=== PATIENT | male | born 1940 | race Caucasian/White ===

== ENCOUNTER 2017-04-09 09:07 | Inpatient (IN) | payer MEDICARE, OTHER ==
[2017-04-09] VITALS (12 sets, daily range): BP systolic 127–179; BP diastolic 51–78; Ht 175.3 cm; Wt 85.0 kg
[~2017-04-09] VITALS: Ht 175.3 cm; Wt 85.0 kg
--- NOTE | ~2017-04-09 | OP ---
PATIENT NAME: JACKIE BYRD JR MEDICAL RECORD: [id number] :38 [facility]ATION[id number] ADMISSION DATE:04/09/17 SURGEON: DON GARCIA MD DATE OF OPERATION: 04/09/2017 PREOPERATIVE DIAGNOSIS: High-grade right carotid artery stenosis. POSTOPERATIVE DIAGNOSIS: High-grade right carotid artery stenosis. PROCEDURE: Right carotid artery endarterectomy with a bovine patch angioplasty with neuromonitoring. SURGEON: Don Garcia MD. COMMUNICATION INSTRUCTOR: Seng Rapp MD. FLUIDS: Per anesthesia record. ANESTHESIA: General. ESTIMATED BLOOD LOSS: 100. SPECIMENS: Right carotid artery plaque. DISPOSITION: Awake to the ICU. Neurologically fully intact, verbalizing and moving all extremities without limitations. INDICATION FOR PROCEDURE: Mr. Byrd is a 77-year-old gentleman under the care of Dr. Garcia, who was found to have elevated velocities on an ultrasound of his carotids. Follow up CT scan showed a high-grade focal narrowing approximately 90% of the proximal ICA. We discussed the risks, alternatives and benefits of surgery. I discussed with Mr. Byrd the medical management versus surgical management. Given the high-grade focal abnormality in his health, we discussed the risks, alternatives and benefits of right carotid artery endarterectomy with bovine patch angioplasty and informed consent was obtained and placed in the chart. PROCEDURE IN DETAIL: After positive identification, informed consent was obtained, the patient was taken to the operating room, laid supine on the operating table. Monitoring lines including EKG pads and a blood pressure cuff. A-line was placed by anesthesia in the preoperative holding area. General anesthesia was induced via endotracheal tube intubation. Neuromonitoring was present during the entire case. The patient was placed in the reverse Trendelenburg position with the neck outstretched. The neck was prepped and draped in standard fashion. A surgical timeout was performed and all members agreed to proceed. We began the procedure by delineating the mastoid process, the clavicular sternal head of the sternocleidomastoid. A 6-cm incision was made along the anterior border of the sternocleidomastoid. Dissection was afforded down through the soft tissues. The platysma was split. [place] was used for retraction. We carefully dissected down on the anterior portion of the sternocleidomastoid and we encountered the internal jugular vein. His anatomy was excellent. It was noted that he did have quite a boggy and swollen parotid OPERATIVE REPORT [id number] JACKIE BYRD JR gland, which was deflected out with retraction. The external jugular vein was taken for exposure. The facial vein was transected for exposure. This made our way down to the carotid artery. A 5000 units of heparin was given prior to manipulating the artery. Neuromonitoring was continued. As we continued to dissect out the carotid artery, it became readily apparent and his bifurcation was quite low and this was advantageous to us. We noted that there was a focal approximately 1 cm plaque distal to the bifurcation correlating with the CT scan. We then carefully encircled and dissected out and skeletonized the carotid artery proximally along the ECA, ICA, and the thyroid branch. These were all controlled with tapes. A 5000 additional units of heparin was given and then when he was fully heparinized, we then clamped the internal carotid artery, the common carotid artery and tapes were used to control the external. Next, utilizing the 11 blade, we carefully opened up the bifurcation on the internal carotid side. Then, using the [place], we carefully extended this over the plaque. It became immediately evident that the plaque was quite severe nearly occluding the carotid and was approximately 1 cm to 2 cm in length. This extended well into the external carotid artery. Then, using the [place] elevator, we carefully and circumferentially dissected out this plaque and we were able to jerry it out of the external carotid and this was then delivered to pathology. The plaque was a little bit mixed and had some soft components and hard components. I was very happy that we were able to deliver the plaque in this completeness to pathology. We then carefully examined our posterior wall. There were some small tears within the media and the intima, which were peeled away back to good vessel wall. These vessel wall layers were then tacked utilizing three 7-0 Prolenes on the proximal ICA and then also on the proximal ECA. This was to ensure that there would be no dissection flap or a nidus for thrombus. After this was done, we thoroughly irrigated the carotid. A shunt was then placed. The 3.5 mm x 30 cm shunt was then placed. No changes in neuromonitoring were noticed. Shunt was confirmed to be in good place with Doppler signals. These were present. We then performed a bovine patch angioplasty utilizing standard bovine pericardial patch in its proper orientation with a 6-0 running suture in standard fashion. Prior to closing the bovine patch angioplasty, we then carefully reclamped the internal and common carotid artery, took the shunt out and then finished up the patch angioplasty. Again, neuromonitoring did not change during this event. We thoroughly flushed out the patch and then the common carotid artery and internal carotid artery was opened after thoroughly deairing and flushing out the graft through the external. During the entire procedure, after heparin was given, there were no changes within neuromonitoring. The repair was then evaluated and there was 1 small bleeder on the medial side near the external, which was controlled with a [id number] of 7-0 suture. After this was done, we then gave 75 units of heparin to counteract a total of 10,000 units of heparin given during the case. We waited for about 20 minutes and once hemostasis was assured, we thoroughly irrigated out the neck and we began to close. Once hemostasis was assured, we then closed the neck in 2 layers, first with layer of deep dermals for the platysmus and then a running Monocryl for the skin. Skin glue was then applied and dressing. Mr. Byrd was then awakened from deep anesthesia to prevent coughing and to allow him to sit up and to prevent venous hypertension. After waking up, he was able to verbalize and he was able to move all 4 extremities without limitations showing an intact neuro exam. OPERATIVE REPORT [id number] JACKIE BYRD TRANSINT:[id number] Voice Confirmation ID: [id number] DOCUMENT ID: [id number] DON GARCIA MD CC: [id number] DICTATION DATE: 04/09/171937 DRIVER/REFUSE COLLECTOR: 04/10/17 0240 ADM IN [facility] [address] [place] [address]
[~2017-04-09 09:07] MED LIST: ASPIRIN EC81 M1 PO; CENTRUM SILVER1 TA1 PO; FISH OIL 1,2001 CAP PO; LIPITOR40 MG PO; TRICOR145 MG PO; ZESTRIL40 MG PO
[2017-04-09 10:28] LABS: BASOPHILS 0.4 % (0-2); EOSINOPHILS 1.4 % (0-7); HEMATOCRIT 42.6 % (42.0-54.0); HEMOGLOBIN 14.8 g/dL (13.5-17.5); IMMATURE GRANULOCYTES 0.2 % (0-5); LYMPHOCYTES 15.7 % (15-50); MCH 32.2 pg (26.0-34.0); MCHC 34.7 g/dL (31.0-37.0); MCV 92.8 fL (80.0-100.0); MEAN PLATELET VOLUME 9.8 fL (7.4-10.4); MONOCYTES 11.3 % (2-11); PLATELET COUNT 163 10x3/uL (130-400); RBC 4.59 10x6/uL (4.20-6.10); RDW 12.8 % (11.5-14.5); WBC 5.2 10x3/uL (4.8-10.8)
[2017-04-09 10:36] LABS: ANION GAP 13.6 mmol/L (8-16); CALCIUM 9.5 mg/dL (8.5-10.1); CARBON DIOXIDE 25.5 mmol/L (21.0-32.0); CREATININE - SERUM 1.5 mg/dL (0.6-1.3); POTASSIUM - SERUM 4.1 mmol/L (3.5-5.1)
[2017-04-09 10:43] LABS: APTT 27.1 SECONDS (22.8-39.4); INR 1.02 (0.85-1.17); PROTIME 13.3 SECONDS (11.6-15.0)
--- NOTE | 2017-04-09 19:15 | NUR ---
PT ARRIVED VIA STRETCHER, PLACED ON MONITORS, DR. BRICENO AT BEDSIDE, NEW ORDERS RECIVED, PT ALERT AND ORIENETED, ON RA WITH 98% O2 SAT. S1S2, CM-NSR,
--- NOTE | 2017-04-09 19:16 | NUR ---
REC'D PT VIA BED, PT ACCOMPANIED BY HOSPITAL STAFF AND . LEFT RADIAL A-LINE. RIGHT NECK INCISIONAL DRESSING CDI. WILL CONTINUE TO MONITOR PT.
--- NOTE | 2017-04-09 21:00 | NUR ---
DAUGHTER AND SON IN LAW HERE TO VISIT. VSS. PT STATED PAIN AND NAUSEA "HAVE ABATED" PT VISITING FREELY. DRESSING TO RIGHT NECK CDI. ICE PACK TO DRESSING. A-LINE HAS BEEN LEVELED AND ZEROED BUT PT VERY MOBILE WITH EXTREMETIES MOVING THEM FREQUENTLY USING NIBP FOR CORRELATION AND MONITORING. TO START WITH ICE CHIPS SPARINGLY TOLERATED AND ADVANCE TO CL ORDERED.
--- NOTE | 2017-04-09 23:00 | NUR ---
SHIFT ASSESSMENT COMPLETED. SEE FLOWSHEET. IVF REMAIN UNCHANGED AND VSS. DRESSING TO RIGHT NECK REMAINS CDI. PT VOICES NO NEEDS. IS TOLERATING ICE CHIPS SPARINGLY BUT STATES IS NOT READY FOR FLUIDS. DENIES NAUSEA BUT KEEPS EMESIS BAG IN HAND FOR SECURITY. NEUROCHECKS REMAIN UNCHANGED AND STABLE
--- NOTE | 2017-04-09 23:45 | NUR ---
FAHAD JETT PLUNGER SHOVEL OPERATOR HERE TO SEE PT AND GET REPORT ON CONDITION. UPDATED.
[2017-04-10] VITALS (11 sets, daily range): BP systolic 125–162; BP diastolic 50–70
--- NOTE | 2017-04-10 01:00 | NUR ---
PT SLEEPING INTERMITTENTLY. DRESSING CDI WNL TO RIGHT NECK
--- NOTE | 2017-04-10 03:00 | NUR ---
SHIFT REASSESSMENT DONE MONITORING B[ CLOSELY. MEDS GIVEN PER MAR
--- NOTE | 2017-04-10 05:00 | NUR ---
PT UP TO CHAIR. TOLERATED WELL, GAIT STEADY. PILLOWS USED FOR SUPPORT AND TO ELEVATE EXTREMETIES. VSS. CALL LIGHT IN REACH
--- NOTE | 2017-04-10 07:04 | NUR ---
SPOKE WITH DR. GARCIA AND UPDATED HIM ON CONDITION OF PATIENTS. REVIEWED VS, PRN MEDS GIVEN THROUGHOUT THE SHIFT, AND HOME MEDS. NEW ORDERS RECEIVED AND REPEATED AND VERIFIED
--- NOTE | 2017-04-10 07:15 | NUR ---
REPORT RECIEVED FROM ORBITREAD OPERATOR NURSE. PT RESTING QUIETLY. NO S/SX OF ACUTE DISTRESS NOTED AT THIS TIME. ASSESMENT COMPELTE PER FLOWSHEET. CALL LIGHT IN REACH. BED IN LOW POSITION. WILL CONT TO ASSESS.
--- NOTE | 2017-04-10 08:00 | NUR ---
A-LINE REMOVED PER ORDERS. CATH INTACT. PRESSURE HELD FOR 3 MIN. NO ISSUES NOTED. OPSITE DRESSING PLACED OVER SITE.
--- NOTE | 2017-04-10 09:24 | NUR ---
CALLED DR. MIKE'S OFFICE, SPOKE WITH FEI GILLIAM, PT TO HAVE F/U APPT 04/29/17 AT 1438
--- NOTE | 2017-04-10 11:00 | NUR ---
D/C INSTRUCTIONS REVIWED WITH PT. QUESTIONS ANSWERED.
--- NOTE | 2017-04-10 11:00 | NUR ---
LEFT WRIST IV REMOVED. CATH INTACT. NO ISSUES NOTED.
--- NOTE | 2017-04-10 11:42 | NUR ---
TRANSFERED OUT VIA W/C. DAUGHTER DRIVING PT HOME.
== END 2017-04-10 11:46 | disposition home or self-care (01) | DRG 39 ==
LOC: D.SDCHOLD 09:07 → D.CVICU 09:07 → D.SDCHOLD 11:30 → D.CVICU 19:06
PROVIDERS: Anesthesiology; ADMIT Surgery
PROC: 03UM0JZ Supplement Right External Carotid Artery with Synthetic Substitute, Open Approach (ICD-10-PCS; 2017-04-09)
PROC: 03CM0ZZ Extirpation of Matter from Right External Carotid Artery, Open Approach (ICD-10-PCS; principal; 2017-04-09 11:30)
DX: I65.21 Occlusion and stenosis of right carotid artery (principal)

== ENCOUNTER → 2018-05-08 12:48 | Outpatient (CLI) | payer MEDICARE, OTHER ==
[2017-04-09 20:05] VITALS: BMI 27.7
== END | disposition home or self-care (01) ==
LOC: D.US 12:48
DX: I65.23 Occlusion and stenosis of bilateral carotid arteries (principal)